=== PATIENT | male | born 1975 | race Hispanic/Latino ===

== ENCOUNTER 2017-11-22 09:00 | Outpatient (CLI) | payer OTHER ==
[~2017-11-22] VITALS: Ht 175.3 cm; Wt 75.7 kg
[~2017-11-22 09:00] MED LIST: CYCL10TA9 PO; IBUP50DR PO; MS15TCR PO; OMEP-10 PO; OMEP20TA2 PO; TRAM50TA2 PO; neurontin
[2017-11-22] MEDS ORDERED: MORP-33 PO (09:07)
[2017-11-22] MEDS ORDERED: PROP40TA5 PO (09:07)
[2017-11-22] MEDS ORDERED: ONDA8TAB6 PO (09:07)
[2017-11-22] MEDS ORDERED: TRAM50TA2 PO (09:07)
[2017-11-22] MEDS ORDERED: KETO10TA PO (09:07)
[2017-11-22] MEDS ORDERED: GLIP5TAB13 PO (09:07)
[2017-11-22] MEDS ORDERED: PANT40TA3 PO (09:07)
[2017-11-22] MEDS ORDERED: TIZA2TAB3 PO (09:07)
[2017-11-22] MEDS ORDERED: MORP30TA60 PO (09:07)
[2017-11-22] MEDS ORDERED: NORT75CA PO (09:07)
== END 2017-11-22 09:22 ==
LOC: PREOP 09:00
PROVIDERS: ATTEND Surgery
DX: Z01.818 Encounter for other preprocedural examination (principal); K42.9 Umbilical hernia without obstruction or gangrene

== ENCOUNTER 2017-11-25 06:04 | Day surgery (SDC) | payer OTHER ==
[~2017-11-25] VITALS: Ht 175.3 cm; Wt 75.7 kg
[~2017-11-25 06:04] MED LIST changes: +GLIP5TAB13 PO; +KETO10TA PO; +MORP-33 PO; +MORP30TA60 PO; +NORT75CA PO; +ONDA8TAB6 PO; +PANT40TA3 PO; +PROP40TA5 PO; +TIZA2TAB3 PO
[2017-11-25 06:15] VITALS: BP 139/93
--- OUTSIDE RECORDS SUMMARY | 2017-11-25 06:35 | XMS REPORT ---
Author Author RADHA WEATHERS [facility] Address [address] [place] [address] Care Team Providers Care Licensed Direct Entry Midwife Name Role Phone RADHA WEATHERS Unavailable PROBLEMS Type Condition ICD9-CM Code [id number] Code Onset Dates Condition Status SNOMED Code Problem care home current use of opiate analgesic Z79.891 Active 835515571 Problem Controlled type 2 diabetes mellitus without complication, without long -term current use of insulin E11.9 Active 418505161 Problem Neuropathy G62.9 Active 010964325 Problem Hereditary and idiopathic neuropathy, unspecified G60.9 Active 440376354 Problem Low back pain M54.5 Active 873239982 Problem Type 2 diabetes mellitus with diabetic neuropathy, unspecified long-term insulin use status E11.40 Active 82349187 Problem Cervicalgia M54.2 Active 15598804 ALLERGIES Substance Reaction Event Type Date Status Hydrocodone Unknown Non Drug Allergy Nov, Active SOCIAL HISTORY Never Assessed PLAN OF CARE VITAL SIGNS Height 69 in 2016-11-20 Weight 163 lbs 2016-11-20 Temperature 97.8 degrees Fahrenheit 2016-11-20 Heart Rate 68 bpm 2016-11-20 Respiratory Rate 18 2016-11-20 BMI 24.07 kg/m2 2016-11-20 Blood pressure systolic 128 mmHg 2016-11-20 Blood pressure diastolic 78 mmHg 2016-11-20 MEDICATIONS Medication Instructions Dosage Frequency Start Date End Date Duration Status Morphine Sulfate 30 MG Orally 2 times a day 1 tablet as needed 12h 10 Nov, 2016 28 days Active Zanaflex 6 MG Orally 2 times a day 1 capsule as needed 12h 30 Active Propranolol HCl 60 MG 1 tablet 12h 30 Active Vitamin B12 100 MCG Orally daily 10 tablets 24h Active Tramadol HCl 50 MG Orally every 4 hrs 1 tablet as needed 4h Apr, 28 days Active Protonix 40 MG 1 tablet 12h Active Zofran ODT 8 MG 1 tablet 8h 25 Oct, 2014 Active Nortriptyline HCl 50 MG Orally Once a day 1 capsule 24h Nov, 30 day(s) Active Ketorolac Tromethamine 10 mg Orally every 8 hrs prn number 15 tabs 1 tablet as needed Active RESULTS No Results PROCEDURES No Known procedures IMMUNIZATIONS No Known Immunizations MEDICAL (GENERAL) HISTORY Type Description Date Medical History Diabetes type 2 Medical History GERD Medical History Peripheral neuropathy Medical History Memory loss Medical History Joint pain Surgical History bilateral carpal tunnel Hospitalization History surgery Hospitalization History migraines
--- OUTSIDE RECORDS SUMMARY | 2017-11-25 06:35 | XMS REPORT ---
Author Author RADHA WEATHERS Organization [facility] Address [address] [place] [address] Care Team Providers Care Paper Products Machine Operator Name Role Phone RADHA WEATHERS Unavailable PROBLEMS Type Condition ICD9-CM Code [id number] Code Onset Dates Condition Status SNOMED Code Problem longterm current use of opiate analgesic Z79.891 Active 699820942 Problem Controlled type 2 diabetes mellitus without complication, without long -term current use of insulin E11.9 Active 960052604 Problem Neuropathy G62.9 Active 406068628 Problem Hereditary and idiopathic neuropathy, unspecified G60.9 Active 049053583 Problem Low back pain M54.5 Active 155098951 Problem Type 2 diabetes mellitus with diabetic neuropathy, unspecified prison insulin use status E11.40 Active 31086000 Problem Cervicalgia M54.2 Active 26118130 ALLERGIES No Information SOCIAL HISTORY Never Assessed PLAN OF CARE VITAL SIGNS MEDICATIONS Medication Instructions Dosage Frequency Start Date End Date Duration Status Morphine Sulfate 30 MG Orally 2 times a day 1 tablet as needed 12h Oct, 28 days Active Tramadol HCl 50 MG Orally every 4 hrs 1 tablet as needed 4h Apr, 28 days Active RESULTS No Results PROCEDURES No Known procedures IMMUNIZATIONS No Known Immunizations MEDICAL (GENERAL) HISTORY Type Description Date Medical History Diabetes type 2 Medical History GERD Medical History Peripheral neuropathy Medical History Memory loss Medical History Joint pain Surgical History bilateral carpal tunnel Hospitalization History surgery Hospitalization History migraines
--- OUTSIDE RECORDS SUMMARY | 2017-11-25 06:35 | XMS REPORT ---
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 Z79.891 Active Problem Lumbago 724.2 Active Problem Swelling, mass, or lump in head and neck 784.2 Active Problem 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 Problem Memory loss 780.93 Active Problem Diabetes mellitus without mention of complication, type II or unspecified type, not stated as uncontrolled 250.00 Active Problem Pain in joint, lower leg 719.46 Active Problem Pain in joint, ankle and foot 719.47 Active Problem Cervicalgia 723.1 Active Problem 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
[2017-11-25] MEDS ORDERED: ROCURONIUM 10 MG/ML 5 ML SYRINGE IV ONE (06:36)
[2017-11-25] MEDS ORDERED: fentaNYL INJECTION 100 MCG/2 ML AMP ONE (06:36)
[2017-11-25] MEDS ORDERED: LIDOCAINE PF 2% 5 ML (XYLOCAINE) VIAL ONE (06:36)
[2017-11-25] MEDS ORDERED: ONDANSETRON 4 MG/2 ML (SDV) Z0FRAN ONE (06:36)
[2017-11-25] MEDS ORDERED: SEVOFLURANE (ULTANE) 15 ML INHAL SOLN ONE ×4 (06:36→07:55)
[2017-11-25] MEDS ORDERED: MIDAZOLAM 2 MG/2 ML (VERSED) VIAL ONE (06:36)
[2017-11-25] MEDS ORDERED: proPOfol 200 MG/20 ML (DIPRIVAN) VIAL IV ONE (06:36)
--- OUTSIDE RECORDS SUMMARY | 2017-11-25 06:36 | XMS REPORT ---
Author Author RADHA WEATHERS [facility] Address [address] [place] [address] Care Team Providers Care Radiology Clerk Name Role Phone RADHA WEATHERS Unavailable PROBLEMS Type Condition ICD9-CM Code [id number] Code Onset Dates Condition Status SNOMED Code Problem [facility] current use of opiate analgesic Z79.891 Active 190321990 Problem Controlled type 2 diabetes mellitus without complication, without long -term current use of insulin E11.9 Active 237340419 Problem Neuropathy G62.9 Active 860248782 Problem Hereditary and idiopathic neuropathy, unspecified G60.9 Active 063846974 Problem Low back pain M54.5 Active 596625932 Problem Type 2 diabetes mellitus with diabetic neuropathy, unspecified detention insulin use status E11.40 Active 10601987 Problem Cervicalgia M54.2 Active 86563878 ALLERGIES No Information SOCIAL HISTORY Never Assessed PLAN OF CARE VITAL SIGNS MEDICATIONS Unknown Medications RESULTS Name Result Date Reference Range TSH 2016-11-24 TSH 3.540 0.450-4.500 CBC 2016-11-24 WBC 5.2 3.4-10.8 RBC 5.16 4.14-5.80 Hemoglobin 15.3 12.6-17.7 Hematocrit 45.3 37.5-51.0 MCV 88 79-97 MCH 29.7 26.6-33.0 MCHC 33.8 31.5-35.7 RDW 13.9 12.3-15.4 Platelets 282 150-379 Neutrophils 39 Lymphs 49 Monocytes 8 Eos 3 Basos 1 Neutrophils (Absolute) 2.0 1.4-7.0 Lymphs (Absolute) 2.6 0.7-3.1 Monocytes(Absolute) 0.4 0.1-0.9 Eos (Absolute) 0.2 0.0-0.4 Baso (Absolute) 0.0 0.0-0.2 Immature Granulocytes 0 Immature Grans (Abs) 0.0 0.0-0.1 LIPID PANEL 2016-11-24 Cholesterol, Total 232 100-199 Triglycerides 248 0-149 HDL Cholesterol 36 >39 VLDL Cholesterol Ashwin 50 5-40 LDL Cholesterol Calc 146 0-99 CMP 2016-11-24 Glucose, Serum 134 65-99 BUN 17 6-24 Creatinine, Serum 0.86 0.76-1.27 eGFR If NonAfricn Am 108 >59 eGFR If Africn Am 125 >59 BUN/Creatinine Ratio 20 9-20 Sodium, Serum 139 134-144 Potassium, Serum 5.0 3.5-5.2 Chloride, Serum 99 96-106 Carbon Dioxide, Total 23 18-29 Calcium, Serum 9.9 8.7-10.2 Protein, Total, Serum 7.7 6.0-8.5 Albumin, Serum 4.7 3.5-5.5 Globulin, Total 3.0 1.5-4.5 A/G Ratio 1.6 1.2-2.2 Bilirubin, Total 0.8 0.0-1.2 Alkaline Phosphatase, S 74 39-117 AST (SGOT) 31 0-40 ALT (SGPT) 52 0-44 PROCEDURES Procedure Date Ordered Result Body Site ASSAY THYROID STIM HORMONE November 24, 2016 COMPLETE CBC W/AUTO DIFF WBC November 24, 2016 COMPREHEN METABOLIC PANEL November 24, 2016 LIPID PANEL November 24, 2016 VENIPUNCT, ROUTINE* November 24, 2016 IMMUNIZATIONS No Known Immunizations MEDICAL (GENERAL) HISTORY Type Description Date Medical History Diabetes type 2 Medical History GERD Medical History Peripheral neuropathy Medical History Memory loss Medical History Joint pain Surgical History bilateral carpal tunnel Hospitalization History surgery Hospitalization History migraines
--- OUTSIDE RECORDS SUMMARY | 2017-11-25 06:36 | XMS REPORT ---
Author Author RADHA WEATHERS [facility] [employer] Address Unknown Phone Unavailable Care Team Providers Care Retail Advertising Executive Name Role Phone RADHA WEATHERS CP Unavailable Allergies No Known Allergies Problems Problem Type Condition ICD-9 Code Onset Dates Condition Status Problem Cervicalgia 723.1 Active Problem Carpal tunnel syndrome 354.0 Active Problem Unspecified hereditary and idiopathic peripheral neuropathy 356.9 Active Problem 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 Problem Memory loss 780.93 Active Problem Other signs and symptoms involving cognition 799.59 Active Problem Elevated blood pressure reading without diagnosis of hypertension 796.2 Active Problem Esophageal reflux 530.81 Active Problem Lumbago 724.2 Active Problem Swelling, mass, or lump in head and neck 784.2 Active Problem Pain in joint, ankle and foot 719.47 Active Problem 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 Problem Diabetes mellitus without mention of complication, type II or unspecified type, not stated as uncontrolled 250.00 Active Assessment Diabetes 250.00 Active Problem Pain in joint, lower leg 719.46 Active Medications Medication Code System Code Instructions Start Date End Date Status Dosage Ketorolac Tromethamine [facility] [address]-10 10 MG Orally every 8 hrs prn number 15 tabs 1 tablet as needed Morphine Sulfate [facility] [address]-74 15 MG Orally 3 times a day Apr 24, 2015 1 tablet as needed Tramadol HCl [facility] [address]-68 50 MG Orally every 4 hrs Apr 24, 2015 1 tablet as needed Results No Known Results Summary Purpose [employer]ClinicalWorks Submission
--- OUTSIDE RECORDS SUMMARY | 2017-11-25 06:36 | XMS REPORT ---
Author Author RADHA WEATHERS [facility] [employer] Address Unknown Phone Unavailable Care Team Providers Care Women'S Activities Adviser Name Role Phone RADHA WEATHERS CP Unavailable Allergies No Known Allergies Problems Problem Type Condition Code Onset Dates Condition Status Problem Cervicalgia [...] Instructions Start Date End Date Status Dosage Morphine Sulfate [facility] [address]-41 15 MG Orally 3 times a day Apr 24, 2015 1 tablet as needed Ketorolac Tromethamine [facility] [address]-77 10 MG Orally every 8 hrs prn number 15 tabs 1 tablet as needed Tramadol HCl [facility] [address]-16 50 MG Orally every 4 hrs Apr 24, 2015 1 tablet as needed Results No Known Results Summary Purpose [employer] Submission
--- OUTSIDE RECORDS SUMMARY | 2017-11-25 06:36 | XMS REPORT ---
Author Author RADHA WEATHERS Organization [facility] Address [address] [place] [address] Care Team Providers Care Automobile Wrecker Name Role Phone JASIEL RADHA Unavailable PROBLEMS Type Condition ICD9-CM Code [id number] Code Onset Dates Condition Status SNOMED Code Problem correction current use of opiate analgesic Z79.891 Active 149595946 Problem Controlled type 2 diabetes mellitus without complication, without long -term current use of insulin E11.9 Active 172962497 Problem Neuropathy G62.9 Active 133042174 Problem Hereditary and idiopathic neuropathy, unspecified G60.9 Active 322861778 Problem Low back pain M54.5 Active 585915982 Problem Type 2 diabetes mellitus with diabetic neuropathy, unspecified [facility] insulin use status E11.40 Active 04389675 Problem Cervicalgia M54.2 Active 24381226 ALLERGIES No Information SOCIAL HISTORY Never Assessed PLAN OF CARE VITAL SIGNS MEDICATIONS Medication Instructions Dosage Frequency Start Date End Date Duration Status Morphine Sulfate 30 MG Orally 2 times a day 1 tablet as needed 12h Nov, 28 days Active RESULTS No Results PROCEDURES No Known procedures IMMUNIZATIONS No Known Immunizations MEDICAL (GENERAL) HISTORY Type Description Date Medical History Diabetes type 2 Medical History GERD Medical History Peripheral neuropathy Medical History Memory loss Medical History Joint pain Surgical History bilateral carpal tunnel Hospitalization History surgery Hospitalization History migraines
--- OUTSIDE RECORDS SUMMARY | 2017-11-25 06:36 | XMS REPORT ---
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
--- OUTSIDE RECORDS SUMMARY | 2017-11-25 06:36 | XMS REPORT ---
Author Author RADHA WEATHERS Organization [facility] Address [address] [place] [address] Care Team Providers Care Oceanic Sciences Professor Name Role Phone JASIEL RADHA Unavailable PROBLEMS Type Condition ICD9-CM Code [id number] Code Onset Dates Condition Status SNOMED Code Problem alf current use of opiate analgesic Z79.891 Active 136836311 Problem Controlled type 2 diabetes mellitus without complication, without long -term current use of insulin E11.9 Active 651882342 Problem Neuropathy G62.9 Active 852164844 Problem Hereditary and idiopathic neuropathy, unspecified G60.9 Active 504734232 Problem Low back pain M54.5 Active 051775542 Problem Type 2 diabetes mellitus with diabetic neuropathy, unspecified [facility] insulin use status E11.40 Active 19136431 Problem Cervicalgia M54.2 Active 15964094 ALLERGIES No Information SOCIAL HISTORY Never Assessed PLAN OF CARE VITAL SIGNS MEDICATIONS Medication Instructions Dosage Frequency Start Date End Date Duration Status Atorvastatin Calcium 20 mg Orally Once a day 1 tablet 24h Nov, 30 day(s) Active RESULTS No Results PROCEDURES No Known procedures IMMUNIZATIONS No Known Immunizations MEDICAL (GENERAL) HISTORY Type Description Date Medical History Diabetes type 2 Medical History GERD Medical History Peripheral neuropathy Medical History Memory loss Medical History Joint pain Surgical History bilateral carpal tunnel Hospitalization History surgery Hospitalization History migraines
--- OUTSIDE RECORDS SUMMARY | 2017-11-25 06:36 | XMS REPORT ---
Author Author RADHA WEATHERS [facility] [employer] Address Unknown Phone Unavailable Care Team Providers Care Licensed Optician Name Role Phone RADHA WEATHERS CP Unavailable [...] Date End Date Status Dosage Tramadol HCl [facility] [address]-44 50 MG Orally every 4 hrs Apr 24, 2015 1 tablet as needed Ketorolac Tromethamine [facility] [address]-29 10 MG Orally every 8 hrs prn number 15 tabs 1 tablet as needed Morphine Sulfate [facility] [address]-39 15 MG Orally 3 times a day Apr 24, 2015 1 tablet as needed Results No Known Results Summary Purpose [employer]ClinicalWorks Submission
--- OUTSIDE RECORDS SUMMARY | 2017-11-25 06:36 | XMS REPORT ---
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 Z79.891 Active 806116819 Problem Type 2 diabetes mellitus with diabetic neuropathy, unspecified [facility] insulin use status E11.40 Active 87557225 Problem Cervicalgia M54.2 Active 94165085 ALLERGIES Unknown Allergies SOCIAL HISTORY No smoking Hx information available PLAN OF CARE VITAL SIGNS MEDICATIONS Medication Instructions Dosage Frequency Start Date End Date Duration Status Morphine Sulfate 30 MG Orally 2 times a day 1 tablet as needed 12h 16 Aug, 2016 Active Tramadol HCl 50 mg Orally every 4 hrs 1 tablet as needed 4h 19 Apr, 2015 Active RESULTS No Results PROCEDURES No Known procedures IMMUNIZATIONS No Known Immunizations
--- OUTSIDE RECORDS SUMMARY | 2017-11-25 06:36 | XMS REPORT ---
Author Author DEANA NGUYEN Organization [facility] Address [address] [place] [address] Care Team Providers Care Residential Program Coordinator Name Role Phone PATRICK DEANA Unavailable PROBLEMS Type Condition ICD9-CM Code WGI35-TS Code Onset Dates Condition Status SNOMED Code Problem [facility] current use of opiate analgesic Z79.891 Active 502402016 Problem Controlled type 2 diabetes mellitus without complication, without long -term current use of insulin E11.9 Active 105787980 Problem Neuropathy G62.9 Active 842388161 Problem Hereditary and idiopathic neuropathy, unspecified G60.9 Active 245843956 Problem Low back pain M54.5 Active 095733629 Problem Type 2 diabetes mellitus with diabetic neuropathy, unspecified retirement insulin use status E11.40 Active 65902131 Problem Cervicalgia M54.2 Active 97320238 ALLERGIES Unknown Allergies SOCIAL HISTORY No smoking Hx information available PLAN OF CARE Activity Details Follow Up prn Reason: VITAL SIGNS Height 69 in 2016-08-21 Blood pressure systolic 126 mmHg 2016-08-21 Blood pressure diastolic 78 mmHg 2016-08-21 MEDICATIONS Unknown Medications RESULTS No Results PROCEDURES Procedure Date Ordered Related Diagnosis Body Site Office Visit, Est Pt., Level 3 Aug 21, 2016 IMMUNIZATIONS No Known Immunizations
--- OUTSIDE RECORDS SUMMARY | 2017-11-25 06:36 | XMS REPORT ---
Author RADHA Luna [facility] [employer] Address Unknown Phone Unavailable Care Team Providers Care Fur Designer Name Role Phone RADHA WEATHERS CP Unavailable Allergies, Adverse Reactions, Alerts Substance Reaction Event Type Hydrocodone Info Not Available Non Drug Allergy Problems Problem Type Condition ICD-9 Code Onset [...] dysfunction with inhibited sexual excitement 302.72 Active Assessment Frequent headaches 784.0 Active Problem Diabetes mellitus without mention of complication, type II or unspecified type, not stated as uncontrolled 250.00 Active Assessment Diabetes 250.00 Active Problem Pain in joint, lower leg 719.46 Active Medications Medication Code System Code Instructions Start Date End Date Status Dosage Morphine Sulfate [facility] [address]-86 15 MG Orally 3 times a day Apr 24, 2015 1 tablet as needed Ketorolac Tromethamine [facility] [address]-35 10 MG Orally every 8 hrs prn Apr 24, 2015 Apr 29, 2015 1 tablet as needed Protonix [facility] [address]-22 40 MG Once a day 1 tablet Propranolol HCl [facility] [address]-28 60 MG Twice a day 1 tablet Zofran ODT [facility] [address]-53 8 MG every 8 hrs Oct 31, 2014 1 tablet Ketorolac Tromethamine [facility] [address]-76 10 MG Orally every 8 hrs prn number 15 tabs 1 tablet as needed Tramadol HCl [facility] [address]-23 50 MG Orally every 4 hrs Apr 24, 2015 1 tablet as needed Cyclobenzaprine HCl [facility] 93398986376 10 MG TAKE ONE TABLET BY MOUTH THREE TIMES DAILY NEEDED (NO MORE REFILLS UNTIL APPOINTMENT!!!) Procedures Procedure Coding System Code Date Office Visit, Est Pt., Level 3 CPT-4 53639 Apr 24, 2015 GLYCATED HEMOGLOBIN TEST CPT-4 50906 Apr 24, 2015 Vital Signs Date/Time: Apr 24, 2015 Temperature 96.9 F Weight 170.0 lbs Height 69 in BMI 25.10 Index Blood Pressure Diastolic 70 mmHg Blood Pressure Systolic 130 mmHg Cardiac Monitoring Heart Rate 72 bpm Results Name Result Date Reference Range Unit Abnormality Flag A1C (IN HOUSE) Summary Purpose eClinicalWorks Submission
--- OUTSIDE RECORDS SUMMARY | 2017-11-25 06:36 | XMS REPORT ---
Author RADHA Luna [facility] eClinicalWorks Address Unknown Phone Unavailable Care Team Providers Care Offal Worker Name Role Phone RADHA WEATHERS CP Unavailable Allergies, Adverse Reactions, Alerts Substance Reaction Event Type Hydrocodone Info Not Available Non Drug Allergy Problems Problem Type Condition Code Onset Dates Condition Status Problem Elevated blood pressure reading without diagnosis of hypertension 796.2 Active Problem Lumbago 724.2 Active Problem Swelling, mass, or lump in head and neck 784.2 Active Problem Hereditary and idiopathic neuropathy, unspecified G60.9 Active Assessment Hereditary and idiopathic neuropathy, unspecified G60.9 Active Problem intermediate current use of opiate analgesic Z79.891 Active Assessment Plantar fasciitis M72.2 Active Problem Cervicalgia M54.2 Active Problem 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 Problem Memory loss 780.93 Active Problem Low back pain M54.5 Active Problem Other signs and symptoms involving cognition 799.59 Active Problem Pain in joint, ankle and foot 719.47 Active Problem 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 Assessment Low back pain M54.5 Active Assessment Cervicalgia M54.2 Active Problem Cervicalgia 723.1 Active Problem Unspecified hereditary and idiopathic peripheral neuropathy 356.9 Active Problem Diabetes mellitus without mention of complication, type II or unspecified type, not stated as uncontrolled 250.00 Active Problem Carpal tunnel syndrome 354.0 Active Problem Pain in joint, lower leg 719.46 Active Problem Esophageal reflux 530.81 Active Medications Medication Code System Code Instructions Start Date End Date Status Dosage Ketorolac Tromethamine [facility] [address]-26 10 mg Orally every 8 hrs prn number 15 tabs 1 tablet as needed Tramadol HCl [facility] [address]-60 50 mg Orally every 4 hrs Apr 24, 2015 1 tablet as needed Zanaflex [facility] [address]-47 6 MG Orally 2 times a day May 21, 2016 1 capsule as needed Nortriptyline HCl [facility] 71381079961 10 mg Orally Once a day at hs 3 capsules Propranolol HCl [facility] [address]-37 60 MG Twice a day 1 tablet Zofran ODT [facility] [address]-48 8 MG every 8 hrs Oct 31, 2014 1 tablet Morphine Sulfate [facility] [address]-10 30 MG Orally 2 times a day Apr 24, 2015 1 tablet as needed Cyanocobalamin [facility] [address]-21 1000 MCG/15ML Orally Once a day May 21, 2016 November 17, 2016 15 ml Vitamin B12 [facility] [address]78 100 MCG Orally daily 10 tablets Protonix [facility] [address]-45 40 MG 2 times a day 1 tablet Procedures Procedure Coding System Code Date Office Visit, Est Pt., Level 3 CPT-4 65337 Jun 18, 2016 Vital Signs Date/Time: Jun 18, 2016 Cardiac Monitoring Heart Rate 72 bpm Weight 160.2 lbs Height 69 in BMI 23.65 Index Blood Pressure Diastolic 88 mmHg Blood Pressure Systolic 132 mmHg Results No Known Results Summary Purpose eClinicalWorks Submission
--- OUTSIDE RECORDS SUMMARY | 2017-11-25 06:37 | XMS REPORT ---
Author Author RADHA WEATHERS Organization [facility] Address [address] [place] [address] Care Team Providers Care Veneer Sheet Repairer Name Role Phone RADHA WEATHERS Unavailable PROBLEMS Type Condition ICD9-CM Code [id number] Code Onset Dates Condition Status SNOMED Code Problem [facility] current use of opiate analgesic Z79.891 Active 571824856 Problem Controlled type 2 diabetes mellitus without complication, without long -term current use of insulin E11.9 Active 327419854 Problem Neuropathy G62.9 Active 612629139 Problem Hereditary and idiopathic neuropathy, unspecified G60.9 Active 906380322 Problem Low back pain M54.5 Active 033752213 Problem Type 2 diabetes mellitus with diabetic neuropathy, unspecified residential insulin use status E11.40 Active 99357807 Problem Cervicalgia M54.2 Active 01167754 ALLERGIES No Information SOCIAL HISTORY Never Assessed PLAN OF CARE VITAL SIGNS MEDICATIONS Medication Instructions Dosage Frequency Start Date End Date Duration Status Ketorolac Tromethamine 10 MG Orally every 8 hrs prn number 15 tabs 1 tablet as needed 28 days Active Tramadol HCl 50 MG [...]
--- OUTSIDE RECORDS SUMMARY | 2017-11-25 06:37 | XMS REPORT ---
Author Author RADHA WEATHERS [facility] eClinicalWorks Address Unknown Phone Unavailable Care Team Providers Care Cement Finisher Name Role Phone RADHA WEATHERS CP Unavailable [...] Date End Date Status Dosage Morphine Sulfate [facility] [address]-68 15 MG Orally 3 times a day Apr 24, 2015 1 tablet as needed Ketorolac Tromethamine [facility] [address]-16 10 MG Orally every 8 hrs prn number 15 tabs 1 tablet as needed Tramadol HCl [facility] [address]-34 50 MG Orally every 4 hrs Apr 24, 2015 1 tablet as needed Results No Known Results Summary Purpose eClinicalWorks Submission
--- OUTSIDE RECORDS SUMMARY | 2017-11-25 06:37 | XMS REPORT ---
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 Problem Cervicalgia M54.2 Active Problem 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 Problem Memory loss 780.93 Active Problem Low back pain M54.5 Active Problem Other signs and symptoms involving cognition 799.59 Active Problem Pain in joint, ankle and foot 719.47 Active Problem 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 Problem Cervicalgia 723.1 Active Problem Unspecified [...] Date End Date Status Dosage Morphine Sulfate [facility] [address]-56 30 MG Orally 2 times a day Apr 24, 2015 1 tablet as needed Tramadol HCl [facility] [address]-72 50 mg Orally every 4 hrs Apr 24, 2015 1 tablet as needed Results No Known Results Summary Purpose eClinicalWorks Submission
--- OUTSIDE RECORDS SUMMARY | 2017-11-25 06:37 | XMS REPORT ---
Author Author RADHA WEATHERS [facility] eClinicalWorks Address Unknown Phone Unavailable Care Team Providers Care Construction Operations Manager Name Role Phone RADHA WEATHERS CP Unavailable [...] Date End Date Status Dosage Tramadol HCl [facility] [address]-89 50 MG Orally every 4 hrs Apr 24, 2015 1 tablet as needed Ketorolac Tromethamine [facility] [address]-49 10 MG Orally every 8 hrs prn number 15 tabs 1 tablet as needed Morphine Sulfate [facility] [address]-55 15 MG Orally 3 times a day Apr 24, 2015 1 tablet as needed Results No Known Results Summary Purpose eClinicalWorks Submission
--- OUTSIDE RECORDS SUMMARY | 2017-11-25 06:37 | XMS REPORT ---
Author Author RADHA WEATHERS Organization [facility] Address [address] [place] [address] Care Team Providers Care Marketing Account Executive Name Role Phone JASIEL RADHA Unavailable PROBLEMS Type Condition ICD9-CM Code [id number] Code Onset Dates Condition Status SNOMED Code Problem [facility] current use of opiate analgesic Z79.891 Active 922846950 Problem Controlled type 2 diabetes mellitus without complication, without long -term current use of insulin E11.9 Active 119787750 Problem Neuropathy G62.9 Active 367864271 Problem Hereditary and idiopathic neuropathy, unspecified G60.9 Active 555425060 Problem Low back pain M54.5 Active 696062241 Problem Type 2 diabetes mellitus with diabetic neuropathy, unspecified residential insulin use status E11.40 Active 52354927 Problem Cervicalgia M54.2 Active 45367242 ALLERGIES No Known Allergies SOCIAL HISTORY No smoking Hx information available PLAN OF CARE VITAL SIGNS MEDICATIONS Medication Instructions Dosage Frequency Start Date End Date Duration Status Tramadol HCl 50 MG Orally every 4 hrs 1 tablet as needed 4h 19 Apr, 2015 28 days Active Morphine Sulfate 30 MG Orally 2 times a day 1 tablet as needed 12h 13 Sep, 2016 28 days Active RESULTS No Results PROCEDURES No Known procedures IMMUNIZATIONS No Known Immunizations
--- OUTSIDE RECORDS SUMMARY | 2017-11-25 06:37 | XMS REPORT ---
Author Author RADHA WEATHERS [facility] Address [address] [place] [address] Care Team Providers Care Guide Rail Cleaner Name Role Phone RADHA WEATHERS Unavailable PROBLEMS Type Condition ICD9-CM Code [id number] Code Onset Dates Condition Status SNOMED Code Problem [facility] current use of opiate analgesic Z79.891 Active 929064818 Problem Controlled type 2 diabetes mellitus without complication, without long -term current use of insulin E11.9 Active 979108515 Problem Neuropathy G62.9 Active 919977162 Problem Hereditary and idiopathic neuropathy, unspecified G60.9 Active 387117265 Problem Low back pain M54.5 Active 446227188 Problem Type 2 diabetes mellitus with diabetic neuropathy, unspecified [facility] insulin use status E11.40 Active 98288391 Problem Cervicalgia M54.2 Active 93607391 ALLERGIES Substance Reaction Event Type Date Status Hydrocodone Unknown Non Drug Allergy Feb, Active SOCIAL HISTORY Never Assessed PLAN OF CARE Activity Details Follow Up 4 Weeks Reason:neuropathy VITAL SIGNS Height 69 in 2017-02-04 Weight 168.2 lbs 2017-02-04 Temperature 98.4 degrees Fahrenheit 2017-02-04 Heart Rate 78 bpm 2017-02-04 Respiratory Rate 20 2017-02-04 BMI 24.84 kg/m2 2017-02-04 Blood pressure systolic 134 mmHg 2017-02-04 Blood pressure diastolic 82 mmHg 2017-02-04 MEDICATIONS Medication Instructions Dosage Frequency Start Date End Date Duration Status Propranolol HCl 60 mg 1 tablet 12h 30 Active Protonix 40 mg 1 tablet 12h Active Vitamin B12 100 MCG Orally daily 10 tablets 24h Active Tramadol HCl 50 MG Orally every 4 hrs 1 tablet as needed 4h Apr, 28 days Active Zanaflex 6 MG Orally 2 times a day 1 capsule as needed 12h 30 Active Nortriptyline HCl 75 MG Orally Once a day 1 capsule 24h Nov, 30 day(s) Active Glucocard Expression Test - In Vitro 2 times a day, with lancets test blood sugar Dec, Active MS Contin 30 MG Orally every 12 hrs 1 tablet 12h Feb, Active RESULTS Name Result Date Reference Range MICROALBUMIN, URINE (IN HOUSE) 2017-02-04 MICROALBUMIN Normal Lot # [id number] Exp date 12/2017 Clarity CLEAR Color YELLOW ALB 10MG/L CRE 100MG/DL A:C (IN HOUSE) <30MG/G Control Control Lot # Exp date PROCEDURES Procedure Date Ordered Result Body Site MICROALBUMIN, SEMIQUANT February 04, 2017 IMMUNIZATIONS No Known Immunizations MEDICAL (GENERAL) HISTORY Type Description Date Medical History Diabetes type 2 Medical History GERD Medical History Peripheral neuropathy Medical History Memory loss Medical History Joint pain Surgical History bilateral carpal tunnel Hospitalization History surgery Hospitalization History migraines
--- OUTSIDE RECORDS SUMMARY | 2017-11-25 06:37 | XMS REPORT ---
Author Author RADHA WEATHERS [facility] eClinicalWorks Address Unknown Phone Unavailable Care Team Providers Care Oil Scout Name Role Phone RADHA WEATHERS CP Unavailable [...] Instructions Start Date End Date Status Dosage Protonix [facility] [address]-13 40 MG Once a day 1 tablet Ketorolac Tromethamine [facility] [address]-27 10 MG Orally every 8 hrs prn number 15 tabs 1 tablet as needed Results No Known Results Summary Purpose eClinicalWorks Submission
--- OUTSIDE RECORDS SUMMARY | 2017-11-25 06:37 | XMS REPORT ---
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
--- OUTSIDE RECORDS SUMMARY | 2017-11-25 06:37 | XMS REPORT ---
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 551434679 Problem 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 465226811 Problem Memory loss 780.93 Active 60379576 Problem Low back pain M54.5 Active 617176900 Problem Other signs and symptoms involving cognition 799.59 Active 043282025 Problem Pain in joint, ankle and foot 719.47 Active 937539076 Problem 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 [id number] Assessment Hereditary and idiopathic neuropathy, unspecified G60.9 May Active 414390374 Problem Cervicalgia 723.1 Active 55549823 Problem Unspecified hereditary and idiopathic peripheral neuropathy 356.9 Active 294470230 Problem Diabetes mellitus without mention of complication, type II or unspecified type, not stated as uncontrolled 250.00 Active 337388268 Problem Carpal tunnel syndrome 354.0 Active 75853386 Problem Pain in joint, lower leg 719.46 Active 580945897 Problem Esophageal reflux 530.81 Active 520871395 ALLERGIES Substance Reaction Event Type Date Status Hydrocodone Unknown Non Drug Allergy May, Active SOCIAL HISTORY No smoking Hx information available PLAN OF CARE VITAL SIGNS Height 69 in 2016-05-21 Weight 166.3 lbs 2016-05-21 Heart Rate 88 bpm 2016-05-21 Respiratory Rate 18 2016-05-21 BMI 24.56 kg/m2 2016-05-21 Blood pressure systolic 142 mmHg 2016-05-21 Blood pressure diastolic 104 mmHg 2016-05-21 MEDICATIONS Medication Instructions Dosage Frequency Start Date End Date Duration Status Nortriptyline HCl 10 mg Orally Once a day at hs 3 capsules 30 Active Cyanocobalamin 1000 MCG/15ML Orally Once a day 15 ml 24h 15 May, 2016 Nov, 30 day(s) Active Zanaflex 6 MG Orally 2 times a day 1 capsule as needed 12h 15 May, 2016 Active Morphine Sulfate 30 MG Orally 3 times a day 1 tablet as needed 8h Apr, Active Zofran ODT 8 MG 1 tablet 8h Oct, Active Vitamin B12 100 MCG Orally daily 10 tablets 24h Active Ketorolac Tromethamine 10 mg Orally every 8 hrs prn number 15 tabs 1 tablet as needed Active Propranolol HCl 60 MG 1 tablet 12h 30 Active Protonix 40 MG 1 tablet 12h Active Tramadol HCl 50 mg Orally every 4 hrs 1 tablet as needed 4h Apr, Active RESULTS No Results PROCEDURES Procedure Date Ordered Related Diagnosis Body Site Office Visit, Est Pt., Level 3 May 21, 2016 IMMUNIZATIONS No Known Immunizations
[2017-11-25] MEDS ORDERED: ceFAZolin 2 GM/50 ML PRE-MIX IVPB IV ONE (06:45)
[2017-11-25] MEDS ORDERED: CATHETER FLUSH 10 ML SYR IV PRN (06:45)
[2017-11-25] MEDS ORDERED: FAMOTIDINE 20MG/2ML IV (PEPCID) IV ONE (06:45)
[2017-11-25] MEDS: LACTATED RINGERS 1,000 ML IV PRN ×4 (07:00→09:55)
[2017-11-25] MEDS ORDERED: BUPIVACAINE 0.5% 30 ML (SENSORCAINE) VIAL ONE (07:12)
[2017-11-25] MEDS ORDERED: LIDOCAINE 1% INJ 20 ML (XYLOCAINE) VIAL ONE (07:12)
[2017-11-25 07:13] LABS: BASOPHILS # (AUTO) 0.1 10^3/uL (0.0-0.1); BASOPHILS % (AUTO) 1 % (0-10); EOSINOPHILS # (AUTO) 0.2 10^3/uL (0.0-0.3); EOSINOPHILS % (AUTO) 3 % (0-10); HEMATOCRIT 47 % (40-54); HEMOGLOBIN 16.4 G/DL (13.3-17.7); LYMPHOCYTES # (AUTO) 2.4 X 10^3 (1.0-4.0); LYMPHOCYTES % (AUTO) 41 % (12-44); MEAN CORPUSCULAR HEMOGLOBIN 30 PG (25-34); MEAN CORPUSCULAR HGB CONC 35 G/DL (32-36); MEAN CORPUSCULAR VOLUME 86 FL (80-99); MONOCYTES # (AUTO) 0.4 X 10^3 (0.0-1.0); MONOCYTES % (AUTO) 6 % (0-12); NEUTROPHILS # (AUTO) 2.8 X 10^3 (1.8-7.8); NEUTROPHILS % (AUTO) 48 % (42-75); PLATELET COUNT 270 10^3/uL (130-400); RED BLOOD COUNT 5.44 10^6/uL (4.35-5.85); RED CELL DISTRIBUTION WIDTH 13.8 % (10.0-14.5); WHITE BLOOD COUNT 5.9 10^3/uL (4.3-11.0)
[2017-11-25] MEDS ORDERED: ceFAZolin 2 GM IV Premixed 50 ML IV ONE (07:15)
--- NOTE | 2017-11-25 07:53 | Progress Note-Pre Operative ---
Pre-Operative Progress Note H&P Reviewed The H&P was reviewed, patient examined and no changes noted. Date Seen by Provider: Nov 25, 2017 Time Seen by Provider: 07:40 Date H&P Reviewed: Nov 25, 2017 Time H&P Reviewed: 07:40 Pre-Operative Diagnosis: umiblical hernia MARIA ALEJANDRA DALY DO Nov 25, 2017 07:53
[2017-11-25] MEDS ORDERED: GLYCOPYRROLATE 0.2 MG/ML (ROBINUL) 2 ML VIAL ONE (08:57)
[2017-11-25] MEDS ORDERED: NEOSTIGMINE 1 MG/ML 5 ML SYRINGE ONE (08:57)
[2017-11-25] MEDS ORDERED: morphine INJ 10 MG/ML 1ML (SYR OR VIAL) ONE (09:03)
--- NOTE | 2017-11-25 09:06 | Progress Note-Post Operative ---
Post-Operative Progess Note Surgeon (s)/Hotel Custodian (s) Surgeon MARIA ALEJANDRA DALY DO Hotel Custodian: NA Pre-Operative Diagnosis umiblical hernia Post-Operative Diagnosis UMBILICAL HERNIA Procedure & Operative Findings Date of Procedure 11/25/17 Procedure Performed/Findings LAPAROSCOPIC UMBILICAL HERNIA Anesthesia Type GENERAL Estimated Blood Loss Estimated blood loss (mL): MINIMAL Specimens/Packing Specimens Removed HERNIA CONTENTS MARIA ALEJANDRA DALY DO Nov 25, 2017 09:06
--- NOTE | 2017-11-25 09:10 | Discharge Inst-Simple/Standard ---
Discharge Inst-Standard Patient Instructions/Follow Up Plan of Care/Instructions/FU: 2-3 WEEKS MALIKA Activity as Tolerated: No Discharge Diet: Regular Diet Other Inst to Patient Follow up Appt: Make appointment for 2-3 week. Instructions: No lifting greater than 10 pounds. No strenuous activity. May shower in 24 hours, no tub bath or soaking. Use incentive spirometer at home as directed. No Smoking Skin/Wound Care: May remove bandages IN 48 HOURS. You HAVE GLUE OVER INCISIONS IT WILL FALL OFF ON ITS OWN. Symptoms to Report: Appetite Changes, Extremity Discoloration, Numbness/Tingling, Swelling Increased , Bleeding Excessive, Eyesight Changes, Pain Increased, Urine Color Change, Constipation(Persistent), Fever over 101 degree F, Pain/Pressure in chest, Urinating Difficulty, Cough Up/Vomit Blood, Heart Beat Irreg/Pounding, Pain/ Pressure in jaw, Vaginal Bleeding Increase, Cramps in feet or legs, Lightheadedness, Pain/Pressure in shoulder, Diarrhea(Persistent), Memory Changes Suddenly, Questions/Concerns, Weight gain consecutive days, Dizziness/ Fainting, Nausea/Vomiting, Shortness of Breath, Weight gain over 2 pounds If questions or concerns contact your physician Or seek help at emergency department. MARIA ALEJANDRA DALY DO Nov 25, 2017 09:10
[2017-11-25] MEDS ORDERED: ONDANSETRON 4 MG/2 ML (SDV) Z0FRAN IVP PRN (09:30)
[2017-11-25] MEDS ORDERED: morphine INJ 10 MG/ML 1ML (SYR OR VIAL) IVP PRN (09:30)
[2017-11-25] MEDS ORDERED: MEPERIDINE (DEMEROL) INJ 50 MG/ML IVP PRN (09:30)
[2017-11-25 10:15] VITALS: BP 139/94
[2017-11-25 10:16] VITALS: BP 139/94
[2017-11-25 10:45] VITALS: BP 128/100
[2017-11-25] MEDS ORDERED: morphine ER 15 MG (MS CONTIN) TAB PO ONE (10:45)
[2017-11-25 11:15] VITALS: BP 139/92
--- NOTE | 2017-11-25 14:32 | OPERATIVE REPORT ---
DATE OF SERVICE: 11/25/2017 PREOPERATIVE DIAGNOSIS: Umbilical hernia. POSTOPERATIVE DIAGNOSIS: Umbilical hernia. PROCEDURE: Laparoscopic umbilical hernia repair. ANESTHESIA: General. SURGEON: Maria Alejandra Stokes DO. ESTIMATED BLOOD LOSS: Minimal. COMPLICATIONS: None. INDICATIONS: The patient is a 42-year-old male who has an umbilical hernia which has continued increase in size and causing discomfort. He understands risks and benefits of procedure and wished to proceed with the procedure. Consent was signed on the chart. DESCRIPTION OF PROCEDURE: The patient was taken to the operating suite, was prepped and draped in sterile fashion. Surgical pause was performed. A 15 blade scalpel was used to make incision in the left upper quadrant. Veress needle was inserted and pneumoperitoneum was achieved. Under direct visualization of the laparoscope, a 5 mm trocar was then placed. Under direct visualization of the laparoscope, a 5 mm trocar was placed in the left lateral side lateral to the umbilicus and also a 5 mm trocar was placed in the left lower quadrant. Hernia of the umbilicus was present. This was fat containing and could not be removed with this grasping. A LigaSure was then used to remove the fat and hernia contents from the umbilicus. This was incarcerated up and through this area. It was not strangulated. Once this was removed, a 0 Vicryl with a Vaibhav-Shwetha was used to close the defect through a stab incision at the umbilicus. At this time, a 4-1/2 inch echo Ventralight mesh was inserted in the abdomen and grasped with the Vaibhav-Shwetha through the stab incision at the umbilicus. The balloon was insufflated and the mesh was pulled up onto anterior abdominal pain with decreased abdominal pressures. A SecureStrap Tacker was then used to make a circumferential tacking ring and the balloon was then removed. Inner crown was created as well. There was adequate coverage and good adherence. The 12 mm fascial defect was then closed with 0 Vicryl with a Vaibhav-Shwetha. The abdomen was then desufflated, the trocars were removed. A 0.5% Marcaine with 1% lidocaine was used to anesthetize all the trocar sites. The skin was then closed using 4-0 Vicryl in a subcuticular fashion. A SwiftSet was placed over incisions. The patient tolerated the procedure well without any complications, taken to recovery room in stable condition. Job ID: [id number] DocumentID: [id number] Dictated Date: 11/25/2017 11:22:24 Biomedical Engineering Supervisor Date: 11/25/2017 14:31:53 Dictated By: MARIA ALEJANDRA STOKES DO
== END 2017-11-25 11:55 | disposition home or self-care (01) ==
LOC: SDC 06:04
PROVIDERS: ATTEND Surgery
DX: K42.0 Umbilical hernia with obstruction, without gangrene (principal); I10 Essential (primary) hypertension; E11.40 Type 2 diabetes mellitus with diabetic neuropathy, unspecified; F32.9 Major depressive disorder, single episode, unspecified; F41.9 Anxiety disorder, unspecified; K21.9 Gastro-esophageal reflux disease without esophagitis; F17.210 Nicotine dependence, cigarettes, uncomplicated; Z79.84 Long term (current) use of oral hypoglycemic drugs; Z79.899 Other long term (current) drug therapy
CPT/HCPCS: 36415; 82962; 85025; 87081